=== PATIENT | female | born 1970 | race Caucasian/White ===

== ENCOUNTER 2021-10-31 18:39 | Emergency (ER) | payer OTHER ==
[~2021-10-31] VITALS: Ht 170.2 cm; Wt 160.1 kg
[~2021-10-31 18:39] MED LIST: AUGMENTIN 875-1 EACH PO; BENTYL 20MG TAB20 MG PO; COLACE 100MG C100 MG PO; GABAPENTIN300 MG PO; HYDROXYZINE HCL10 MG PO; LEVOTHYROXINE150 MCG PO; LEXAPRO20 MG PO; NORCO 7.5-3251 EACH PO; SINGULAIR10 MG PO; ZOFRAN ODT 4 MG4 MG PO
[2021-10-31] MEDS ORDERED: PROAIR HFA8.5 GM INH (21:02)
== END 2021-10-31 23:35 | disposition home or self-care (01) ==
LOC: ER1 18:39
DX: U07.1 COVID-19 (principal); J45.909 Unspecified asthma, uncomplicated; Z90.710 Acquired absence of both cervix and uterus; Z23 Encounter for immunization
CPT/HCPCS: 96374; 99283; J2405; M0245; U0002